=== PATIENT | male | born 1985 | race Caucasian/White ===

== ENCOUNTER 2018-12-03 13:20 | Emergency (ER) | payer MEDICAID ==
[~2018-12-03] VITALS: Ht 185.4 cm; Wt 105.5 kg
[2018-12-03 13:23] VITALS: Ht 185.4 cm; Wt 105.5 kg
[2018-12-03] MEDS ORDERED: LISINOPRIL20 MG PO (13:24)
[2018-12-03] MEDS ORDERED: ANTIDEPRESSANT (13:25)
[2018-12-03] MEDS ORDERED: CONCERTA 18 MG18 MG PO (13:25)
[2018-12-03 14:30] VITALS: BP 128/59
== END 2018-12-03 15:04 | disposition home or self-care (01) ==
LOC: D.ER 13:20
DX: I10 Essential (primary) hypertension (principal); J45.909 Unspecified asthma, uncomplicated

== ENCOUNTER 2019-06-01 15:44 | Emergency (ER) | payer MEDICAID ==
[~2019-06-01] VITALS: Ht 185.4 cm; Wt 112.7 kg
[~2019-06-01 15:44] MED LIST: ANTIDEPRESSANT; CONCERTA 18 MG18 MG PO; LISINOPRIL20 MG PO
[2019-06-01 15:51] VITALS: Ht 185.4 cm; Wt 112.7 kg
[2019-06-01] MEDS ORDERED: ERYTHROMYCIN OPT1 GM RIGHT EYE (17:00)
[2019-06-01] MEDS ORDERED: ULTRAM50 MG PO (17:00)
[2019-06-01] MEDS ORDERED: SMZ-TMP DS 800-1 TAB PO (17:02)
[2019-06-01 17:40] VITALS: BP 118/61
== END 2019-06-01 17:40 | disposition home or self-care (01) ==
LOC: D.ER 15:44
DX: S05.01XA Injury of conjunctiva and corneal abrasion without foreign body, right eye, initial encounter (principal); X08.8XXA Exposure to other specified smoke, fire and flames, initial encounter; T26.01XA Burn of right eyelid and periocular area, initial encounter; Y93.9 Activity, unspecified; Y92.9 Unspecified place or not applicable; I10 Essential (primary) hypertension; J45.909 Unspecified asthma, uncomplicated